=== PATIENT | male | born 1980 | race Caucasian/White ===

== ENCOUNTER 2018-10-03 05:01 | Observation (INO) | payer OTHER ==
--- NOTE | 2018-10-03 05:14 | ED ---
Substance Abuse/Use - HPI Summary HPI Summary: The pt is a 37 y/o male brought in by ambulance to [facility] c/o Dextromethorphan overdose worsened today. 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 He usually takes 300-400 mg of Dextromethorphan daily to feel high and increased intake to increase the effect. He notes palpitations, dry mouth, diaphoresis, tremors and polydipsia but denies SI. 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 Overdose Characteristics: Oral Alleviating Factor(s): Nothing Associated Signs And Symptoms: Palpitations - Allergies/Home Medications Allergies/Adverse Reactions: Allergies Allergy/AdvReac Type Severity Reaction Status Date / Time No Known Allergies Allergy Verified 10/03/18 05:09 PMH/Surg Hx/FS Hx/Imm Hx Previously Healthy: No Endocrine/Hematology History: Reports: Hx Thyroid Disease - Hypothyroidism Denies: Hx Diabetes Cardiovascular History: Reports: Hx Hypertension Respiratory History: Denies: Hx Asthma Sensory History: Denies: Hx Deafness Psychiatric History: Reports: Hx Anxiety, Hx Depression, Hx Substance Abuse - Cancer History Cancer Type, Location and Year: None reoported - Surgical History Surgery Procedure, Year, and Place: None reported Infectious Disease History: No Infectious Disease History: Denies: Traveled Outside the [place] in Last 30 Days - Family History Known Family History: Negative: Cardiac Disease, Hypertension, Diabetes - Social History Occupation: Unemployed Alcohol Use: None Hx Substance Use: Yes Substance Use Comment - Amount & Last Used: DMX cough syrup daily Hx Tobacco Use: No Smoking Status (MU): Never Smoked Tobacco Review of Systems Constitutional: Other - Positive: Polydipsia Positive: Skin Diaphoresis ENT: Other - Positive: Dry mouth Positive: Palpitations Positive: no symptoms reported Neurological: Other - Tremors Positive: Other - Negative: SI All Other Systems Reviewed And Are Negative: Yes Physical Exam - Summary Physical Exam Summary: Appearance: Well-appearing, Obese, lying in bed comfortable Skin: Warm, dry, no obvious rash Eyes: Pupils 3mm reactive, sclera anicteric, no conjunctival pallor ENT: mucous membranes moist, dry mouth Neck: deferred Respiratory: No signs of respiratory distress Cardiovascular: Tachycardic. Appears well perfused, pulses are nml Abdomen: deferred Musculoskeletal: Moving all 4 extremities without obvious discomfort Neurological: Reflexes are normal,No clonus, Awake and alert, mentation is normal, speech is fluent and appropriate Psychiatric: affect is normal, does not appear anxious or depressed Triage Information Reviewed: Yes Vital Signs On Initial Exam: Initial Vitals Temp Pulse Resp BP Pulse Ox 100.1 F 130 20 153/105 93 10/03/18 05:05 10/03/18 05:05 10/03/18 05:05 10/03/18 05:05 10/03/18 05:05 Vital Signs Reviewed: Yes Diagnostics - Vital Signs Vital Signs Temp Pulse Resp BP Pulse Ox 10/03/18 05:05 100.1 F 130 20 153/105 93 - Laboratory Result Diagrams: 10/03/18 05:41 10/03/18 05:41 Lab Statement: Any lab studies that have been ordered have been reviewed, and results considered in the medical decision making process. - EKG 05:04 Cardiac Rate: Tachycardia - 130 bpm EKG Rhythm: Sinus Tachycardia Summary of EKG Findings: QT interval is 360; QT corrected is 538 06:33 Cardiac Rate: Tachycardia - 126 bpm EKG Rhythm: Sinus Tachycardia Summary of EKG Findings: QT= 0.34 QT corrected =522 Re-Evaluation - Re-Evaluation First Eval Re-Evaluation Time: 05:59 Change: Improved - The patient feels better. The heart rate has decreased to 124 bpm. Course/Dx - Course Course Of Treatment: A 37 year-old M presents to the ED with a CC of Dextromethorphan overdose. 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 He usually takes 300-400 mg of Dextromethorphan daily to feel high and increased intake to increase the effect. He notes palpitations, dry mouth, diaphoresis, tremors and polydipsia but denies SI. A physical exam revealed obesity, tachycardia, a dry mouth, pupils 3 that are 3mm reactive, and normal reflexes without clonus. An EKG reveals tachycardia, a QT interval of 360 and a corrected QT of 538. In the ED course, pt was given charcoal 50 mg PO, N.s 0.9 % IV, Lorazepam 2mg IV and Magnesium sulfate 2 mg in 50ml IVPB which improved the symptoms. Labs indicate elevated lactic acid, creatinine and ALT. A repeat EKG is stable. I discussed the care of the pt with Dr. Kayla MD who agreed to talk to the next provider at the change of shift about admitting the pt. Patient will be admitted with a final Dx of Dextromethorphan overdose. Pt is agreeable with this plan. Allergies noted. - Diagnoses Provider Diagnoses: Dextromethorphan overdose - Physician Notifications Discussed Care Of Patient With: Alfredo Garza - Hospitalist Time Discussed With Above Provider: 06:41 Instructed by Provider To: Other - Dr. Garza agreed to inform the next provider about an admission at the change of shift. Discharge - Sign-Out/Discharge Documenting (check all that apply): Patient Departure - Discharge Plan Condition: Stable Disposition: ADMITTED TO [facility] Referrals: [facility] [Outside] - Attestation Statements Document Initiated by Scribe: Yes Documenting Scribe: Erin Cool Provider For Whom Scribe is Documenting (Include Credential): Dr. Monroe Rasheed MD Scribe Attestation: Erin Condon, scribed for Dr. Monroe Rasheed MD on 10/03/18 at 0656.
[2018-10-03] MEDS ORDERED: Magnesium Sulfate 2 GM IV* 2 GM/50 ML BAG IVPB ONE (05:16)
[2018-10-03] MEDS ORDERED: NS 0.9% 1000 ML* 3,000 ML IV ONE (05:16)
[2018-10-03] MEDS ORDERED: LORazepam INJ* 2 MG/ML 1 ML VIAL IV PUSH ONE (05:21)
[2018-10-03] MEDS ORDERED: Charcoal 50 GM/Sorbitol* 50 GM/240 ML BTL PO ONE (05:21)
[2018-10-03 05:51] LABS: ABS Basophils 0.1 10^3/ul (0-0.2); ABS Eosinophils 0.2 10^3/ul (0-0.6); ABS Lymphocytes 2.8 10^3/ul (1.0-4.8); ABS Monocytes 0.8 10^3/ul (0-0.8); ABS Neutrophils 4.3 10^3/ul (1.5-7.7); ABS Nucleated RBC 0 10^3/ul; Eosinophil % 2.4 % (0-6); Hematocrit 43 % (42-52); Hemoglobin 14.7 g/dl (14.0-18.0); Lymphocyte % 34.1 % (25-47); Mean Corpuscular HGB Conc 34 g/dl (31-36); Mean Corpuscular Hemoglobin 31 pg (27-31); Mean Corpuscular Volume 90 fL (80-94); Mean Platelet Volume 7.8 fL (7.4-10.4); Nucleated Red Blood Cells % 0; Platelet Count 277 10^3/ul (150-450); Red Blood Count 4.76 10^6/ul (4.00-5.40); Red Cell Distribution Width 14 % (10.5-15); White Blood Count 8.1 10^3/ul (3.5-10.8)
[2018-10-03 06:08] LABS: EGFR Non-African American 65.4 (>60)
[2018-10-03] MEDS ORDERED: Potassium Chlor TAB* 20 MEQ TAB.ER PO ONE (07:05)
[2018-10-03] MEDS ORDERED: Acetaminophen TAB* 325 MG PO PRN (07:52)
[2018-10-03 08:00] LABS: Urine Appearance Clear; Urine Blood Negative (Negative); Urine Color Yellow; Urine Ketones Negative (Negative); Urine Protein Negative (Negative); Urine Red Blood Cell Absent (Absent); Urine Specific Gravity 1.023 (1.010-1.030); Urine Urobilinogen Negative (Negative); Urine White Blood Cell Absent (Absent)
[2018-10-03] MEDS ORDERED: NS 0.9% 1000 ML* 1,000 ML IV SCH (08:00)
--- NOTE | 2018-10-03 11:58 | HP ---
TWO ADDENDUMS NOW INCLUDED ON THIS REPORT CC: Alyssia Humphreys NP * HISTORY AND PHYSICAL: DATE OF ADMISSION: 10/03/18 PRIMARY CARE PROVIDER: Alyssia Humphreys NP. CHIEF COMPLAINT: Dextromethorphan overdose. "I felt like I was dying." HISTORY OF PRESENT ILLNESS: Jameel Ortez is a 37-year-old male with history of obesity, hypothyroidism, hypertension and "social anxiety" who presented to the hospital after he took 2 bottles of dextromethorphan "to get high." He has been doing that almost every evening for several months now. Usually he takes half of the quantity that he took last night, but yesterday he wanted to get "more high" and he took double the amount. Within a few hours he had a sensation that he is going to . He denied any chest pain, palpitations or shortness of breath. He had no pain. He said it was just "feeling." Due to that, he called 911 and he presented to the ED tachycardiac, diaphoretic with ataxia. By the time of his admission, he was still tachycardiac and slightly diaphoretic but his ataxia resolved. Apparently the patient was also transiently confused in the emergency room but that resolved also. He states that due to his anxiety, he had been using more dextromethorphan. He also uses NyQuil on an as needed basis, double the dose at night, to try to sleep. The patient is going to be placed on overnight observation with a diagnosis of dextromethorphan overdose. MEDICATIONS: Include: 1. Lisinopril 10 mg daily. 2. Levothyroxine 75 mcg daily. 3. Paxil 40 mg daily. ALLERGIES: No known drug allergies. FAMILY HISTORY: Positive for mother who of brain cancer at the age of 66. SOCIAL HISTORY: The patient lives alone. His surrogate is his father Eddie Ortez, his phone number is [phone]. The patient denies any tobacco, alcohol or drug use. He is currently on SSI. REVIEW OF SYSTEMS: Please see history of present illness. All the remaining 12 systems were reviewed with the patient and were otherwise negative. PHYSICAL EXAMINATION GENERAL: The patient is a very pleasant, 37-year-old obese male with a BMI of 41. The patient is in no acute distress. Alert and awake and oriented x3. VITAL SIGNS: Blood pressure 118/87, heart rate of 127 and regular. Respiratory rate 22, oxygen saturation 94% on room air. Temperature of 100.1. HEENT: Head: Atraumatic, normocephalic. Eyes: Pupils equal, round, and reactive to light and accommodation. Oropharynx clear. Mucosa moist. NECK: Supple. No JVD. No bruits bilaterally. RESPIRATORY: Clear to auscultation bilaterally. CARDIOVASCULAR: Regular rate and rhythm. Tachycardia. No murmur. ABDOMEN: Obese, soft, nontender, bowel sounds are present in all 4 quadrants. EXTREMITIES: There is no edema, pulses are +2 bilaterally, no clubbing or cyanosis. NEUROLOGIC: On neuro evaluation, speech clear. Cranial nerves II through XII grossly intact. Motor strength is 5/5 bilaterally. PSYCHIATRIC EVALUATION: Oriented x3, pleasant and cooperative with evaluation with no evidence of anxiety or depression. LABORATORY DATA: Salsalate, acetaminophen, and alcohol level in the serum were undetectable. Urinalysis was grossly unremarkable. Sodium 141, potassium 3.8, chloride 107, CO2 of 26, BUN of 15, creatinine 1.25. Liver function tests showed AST of 41, ALT of 67, bilirubin within normal limits at 0.3 and alkaline phosphatase of 97. TSH and CPK are pending at the time of dictation. Lactic acid was slightly elevated at 3.2. White blood cell count of 8.1, hemoglobin of 14.7, hematocrit of 43 and platelets of 277. The patient's most recent EKG showed sinus tachycardia with a heart rate of 126 beats per minute with QTc of 442 msec. ASSESSMENT AND PLAN: 1. Dextromethorphan overdose. The patient is going to be placed on overnight observation due to tachycardia, diaphoresis. He is also slightly hyperthermic. We will rule out the rhabdomyolysis by checking CPKs. He is going to be observed in telemetry monitored bed. I will ask Psychiatry to see the patient in consult since the patient had been overusing dextromethorphan for several months now due to his anxiety. For the time being, I will hold his Paxil. 2. In regards to patient's hypertension. The patient's creatinine is slightly elevated likely due to dehydration. I will hold patient's, lisinopril and continue monitoring for the time being. 3. For his hypothyroidism: His TSH is going to be checked. I will continue his Synthroid at 75 mcg daily. 4. In regards to patient's substance abuse. He denies suicidal ideation or trying to kill himself with the dextromethorphan last night. He stated that it eases off his anxiety and he just wanted to get "high." I will ask Psychiatry to address this patient's anxiety issues. TIME SPENT: Approximately 55 minutes was spent on admission of this patient, more than half that time was spent [id number] with the patient doing the interview and physical exam. ADDENDUM NO.1: Please note that the patient has a history of psoriasis. Please also note that the correction to my physical exam dictated previously: Note that this patient does have diffuse psoriasis, black plaques, and erythema , mostly concentrated on bilateral upper extremities and his forehead. ADDENDUM/CORRECTION NO.2: MEDICATION LIST: The corrected medication list that was confirmed with patient' s pharmacy. Please note that previously reported medications as above were reported by patient himself and the corrected ones now include: 1. Levothyroxine 300 mcg daily. 2. Lisinopril 20 mg daily. 3. Bupropion XL 150 mg daily. 4. Paroxetine 40 mg daily. [id number]/CPS #: [id number]/CPS #: [id number]/CPS #: [id number] [facility]
--- NOTE | 2018-10-03 12:15 | HP ---
HISTORY AND PHYSICAL: ADDENDUM: Please note that the patient has a history of psoriasis. Please also note that the correction to my physical exam dictated previously: Note that this patient does have diffuse psoriasis, black plaques, and erythema , mostly concentrated on bilateral upper extremities and his forehead. [id number]/[facility] #: [id number] MTDD
[2018-10-04] MEDS ORDERED: Levothyroxine TAB* 75 MCG TAB PO SCH (06:00)
[2018-10-04 07:09] LABS: EGFR Non-African American 67.2 (>60)
[2018-10-04 07:36] LABS: ABS Basophils 0.1 10^3/ul (0-0.2); ABS Eosinophils 0.3 10^3/ul (0-0.6); ABS Lymphocytes 3.5 10^3/ul (1.0-4.8); ABS Monocytes 0.7 10^3/ul (0-0.8); ABS Neutrophils 4.2 10^3/ul (1.5-7.7); ABS Nucleated RBC 0 10^3/ul; Hematocrit 42 % (42-52); Hemoglobin 13.9 g/dl (14.0-18.0); Lymphocyte % 39.7 %; Mean Corpuscular HGB Conc 33 g/dl (31-36); Mean Corpuscular Hemoglobin 31 pg (27-31); Mean Corpuscular Volume 92 fL (80-94); Nucleated Red Blood Cells % 0.1; Platelet Count 246 10^3/ul (150-450); Red Blood Count 4.54 10^6/ul (4.00-5.40); Red Cell Distribution Width 14 % (10.5-15); White Blood Count 8.8 10^3/ul (3.5-10.8)
[2018-10-04] MEDS ORDERED: BuPROPion XL* 150 MG TAB.XL PO SCH (09:00)
[2018-10-04] MEDS ORDERED: Lisinopril TAB* 10 MG PO SCH (09:00)
[2018-10-04] MEDS ORDERED: Levothyroxine TAB* 150 MCG TAB PO SCH (09:00)
[2018-10-04] MEDS ORDERED: PARoxetine HCL TAB* 40 MG PO SCH (09:00)
[2018-10-04 13:16] VITALS: BP 138/89
--- NOTE | 2018-10-04 14:36 | CONSULT ---
Consult Consult: Attending Physician: Melo Breen MD Consulting Physician: Lexy Walker MD Reason for Consult: Dextromethorphan overdose Chief complaint: I will not do that thing again Source of information: Patient, father, chart review Identifying Data: Patient is 37 y/o male, living by self in [place], [place], support system includes his family. History of presenting illness: Patient with history of Social Anxiety and Depressive Disorder. Patient has been compliant with his medications but irregular with timings. Patient reports not taking Bupropion for about a week as it was increasing anxiety and increasing craving for food. Patient follows up with his primary care for medications management but feels the need to be seen more frequently. Patient continues to struggle with his social anxiety, staying home mostly, not able to get himself out in the social setting including grocery store etc, not going to gym, unable to work due to his anxiety. 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 Patient reported that he was using Nyquil at bedtime for sleep on as need basis until he used DXM cough suppressant that gave him feelings of high and more spiritual. Patient later was using DXM cough suppressant 500 mg 2-3 times a week to get high. Patient reports that he continued to get high but feelings plateaued after couple of months and was not having that spiritual feeling. Patient searched somewhat similar product at [employer] (Robocough) and learned from forums that he can have out of body and spiritual feelings. Patient bought it and first day used two bottles with some hours of gap in between (450 mg of Dextromethorphan). Next day patient used 2 bottles at one time and that initiated intense feeling of a panic attack and that he was going to and got worried. Patient called 911 and was brought to ED for evaluation and stayed overnight for observation. Patient reports feeling of depression with use of alcohol that he tried using to help with social anxiety, but no suicidal or homicidal thoughts. Patient has been planning to get into his routine to help him rather than abusing DXM/Robocough/ Alcohol. Patient reported no craving /urges to use it and would stop it on his own. Patient agreed to go back to physical exercise as well that has helped him in the past for social anxiety and feels hopeful. Patient reports no manic or psychotic symptoms. Patient reported no illicit substance abuse. Past Psychiatric History: Patient reports no inpatient psychiatric hospitalization. Patient reports his struggle with social anxiety started in his middle school and could not get through high school due to that. Patient missed days at school and dropped out in 11th grade. Patients reports getting therapy for that during that time. Patient was not treated with medication until 2007 when he was started on Prozac which caused weight gain. Patient switched to Paxil and was increased to 40mg a day and had stable anxiety to help with daily routines, works from home. Patient reported symptoms of grief after his mother passing away due to brain cancer at age 66 in August of 2015. Patient reported history of passive suicidal thoughts after her , but no intent or attempt. Patient reports that he was able to overcome her loss through grieving process. Currently feels doing better in that. Patient reported no major depression, no euphoric mood and increased goal directed activity, psychosis of delusion/hallucination/bizarre behavior. Family History: Patient has reported social anxiety in his mother. No other psychiatric illness or substance/alcohol abuse in family reported. No suicide in family reported. Medical History: Hypothyroidism, Obesity, HTN Mental Status Examination: Patient is a 37 y/o male, dressed in casual clothing, fair hygiene, lying on his bed, making fair eye contact. Attitude towards interviewer was cooperative. Patient walks without difficulty. Patient did not display any abnormal motor activity during the interview. Patient was oriented to situation, self, place and time. Speech was soft with normal in rate and rhythm. Patient mood was better and affect was dysthymic but reactive appropriately with smiles. Patient memory was fair but had trouble remembering details from his past memories during child antonio. Thought process was coherent. No delusions elicited and no hallucinations reported. Patient did not appear to be internally preoccupied. Patient denied any SI/HI. Patient had fair insight in his treatment and medications. Patient Judgment was fair at time of evaluation. Patient impulse control was good during evaluation. Diagnosis: Social Anxiety Disorder Dextromethorphan Abuse Assessment: Patient is 37 y/o with Social Anxiety Disorder and abusing Dextromethorphan/alcohol leading to feelings of depression. Patient was admitted after adverse reaction due to increase intake of Dextromethorphan to get high and out of body experience. Patient reported no suicidal/Homicidal thoughts, no intent or attempt. Patient has been complying with his medications but agreed to have increased frequency of treatment and get mental Health treatment at [facility] with therapy and medication management. Recommendations: Patient will abstain from medication abuse including DXM/Nyquil and cough suppressant. Patient to use Paxil 40 mg PO routinely around bed time as it will assist him with sleep and reduce fatigue during the day. Patient Wellbutrin to be discontinued due to side effects and not tolerating it well at this time. Patient to use OTC Melatonin to assist with sleep disturbance. Patient to continue with other medications as per medical team. Patient will incorporate physical exercise in his routine as tolerated as that was beneficial in the past to help with his anxiety. Patient was educated to follow up with [facility] for his outpatient mental health treatment. Patient currently no interested in medication/substance/alcohol abuse treatment and feels that he can abstain away from it on his own. But educated to obtain help if continued to have difficulty with it. Melo Breen MD Attending Psychiatrist
--- NOTE | 2018-10-04 18:28 | HP ---
HISTORY AND PHYSICAL: ADDENDUM/CORRECTION: MEDICATION LIST: The corrected medication list that was confirmed with patient' s pharmacy. Please note that previously reported medications as above were reported by patient himself and the corrected ones now include, 1. Levothyroxine 300 mcg daily. 2. Lisinopril 20 mg daily. 3. Bupropion XL 150 mg daily. 4. Paroxetine 40 mg daily. [id number]/[facility] #: [id number] MTDD
--- NOTE | 2018-10-05 10:14 | DS ---
CC: Dr. Breen; Alyssia Humphreys NP * DISCHARGE SUMMARY: DATE OF ADMISSION: 10/03/18 DATE OF DISCHARGE: 10/04/18 PRIMARY CARE PROVIDER: Alyssia Humphreys NP from [place]. DISCHARGE DIAGNOSIS: Dextromethorphan overdose. MEDICATIONS AT DISCHARGE: Include: 1. Paxil 40 mg daily, preferably to take at night. 2. Lisinopril 20 mg daily. 3. Levothyroxine 300 mcg daily. LABORATORY DATA AND STUDIES PERFORMED DURING THE HOSPITAL STAY: Include: On : White blood cell count of 8.8, hemoglobin of 13.9, hematocrit of 42, and platelets of 246,000. Sodium was 138, potassium 3.8, chloride 105, carbon dioxide 24, BUN 15, and creatinine of 1.22. Liver function tests with mild elevation of ALT at 53, otherwise unremarkable. The patient's TSH was 12.6 at admission. Lactic acid of 2.3 on the day of discharge. HOSPITAL COURSE: Jameel Ortez is a 37-year-old male with history of obesity and psoriasis as well as hypertension and hypothyroidism who presented to the hospital after a sensation that "he is going to " after dextromethorphan overdose. The patient stated that he had been using dextromethorphan on and off on a daily basis to "get high." He took too much of the dose and he felt very unwell. He came into the hospital for evaluation. Poison Control recommended for the patient to be observed for at least 6 hours on telemetry monitored bed. The patient was placed on overnight observation. He stated that he uses dextromethorphan to fight his anxiety. Due to that, I asked Dr. Breen from Psychiatry to see the patient in consultation who recommended discontinuation of the patient's Wellbutrin XL and continuation of Paxil only. The patient's TSH was abnormal at admission. The patient stated that he had been having his Synthroid adjusted by Alyssia Humphreys and I asked the patient to follow up with Alyssia Humphreys for further adjustment of his Synthroid. He also stated that he could have missed a couple of doses recently. By the time of discharge, the patient was still mildly tachycardic with the heart rate in the 90s. PHYSICAL EXAMINATION: The remaining physical exam is as follows. Blood pressure of 138/89, heart rate of 99 and regular, respiratory rate 17, oxygen saturation 98% on room air, and temperature 98.1. General Appearance: This is a very pleasant 37-year-old obese male who is in no acute distress. Alert, awake, and oriented x3. HEENT: Head atraumatic, normocephalic. Eyes: Pupils are equal, reactive to light and accommodation. Oropharynx clear. Mucosa moist. Neck: Supple. No JVD. No bruits bilaterally. Cardiovascular: Regular rate and rhythm. No murmur. Respiratory: Clear to auscultation bilaterally. Abdomen: Soft and nontender. Bowel sounds present in all 4 quadrants. Extremities: There is no edema. Pulses are +2 bilaterally. No clubbing or cyanosis. Skin: On evaluation of the skin, the patient has psoriasis plaques noted on forehead and bilateral shoulders mostly. Psychiatric Evaluation: Pleasant, cooperative with evaluation. Oriented x3 with no evidence of anxiety or depression. Please note that this is a short summary of the patient's hospitalization, please refer to further medical records for details. [id number]/[facility] #: [id number] MTDD
== END 2018-10-04 14:25 | disposition home or self-care (01) ==
LOC: ED 05:01 → MED 07:52
PROVIDERS: ADMIT Internal Medicine; ATTEND Internal Medicine
DX: T48.3X1A Poisoning by antitussives, accidental (unintentional), initial encounter (principal); Y92.9 Unspecified place or not applicable; E66.9 Obesity, unspecified; E03.9 Hypothyroidism, unspecified; I10 Essential (primary) hypertension; R00.2 Palpitations
CPT/HCPCS: 36415; 80048; 80053; 80076; 80307; 80320; 80329; 81003; 82550; 83605; 83735; 84443; 85025; 93005; 96361; 96365; 96375; 99284; A9270-GY; G0378; G0480; J2060; J3475

== ENCOUNTER 2018-10-04 18:48 | Emergency (ER) | payer OTHER ==
--- NOTE | 2018-10-04 20:14 | ED ---
Psychiatric Complaint - HPI Summary HPI Summary: A 37 y/o male accompanied by family presents to the ED c/o anxiety s/p overdose on Dextromethorphan yesterday. Currently, the patient is calmer now as he stated , but when he is at home he is anxious and can't get comfortable. As per triage , "Feeling anxious, states he thinks he needs someone to talk to. Denies SI/HI" . According to the patient, his experience yesterday of overdosing on Dextromethorphan (900 mg of Robocough) was "the most terrifying experiencing ever" and he "wouldn't want to wish it upon anybody". He stated that he cannot get the thoughts of the experience out of his mind and experiencing constant thoughts of it. He stated that he is consistently worried that his heart is racing. He noted that he is always worried about this heart. He noted that he has not taken any more of the Robocough and will not take it ever again. He does not want to experience it again. - History Of Current Complaint Chief Complaint: EDPsychosocial Time Seen by Provider: 10/04/18 20:07 Hx Obtained From: Patient Onset/Duration: Sudden Onset, Lasting Days, Still Present Timing: Constant Character: Anxious Aggravating Factor(s): Recent Stress - RECENT OVERDOSE Alleviating Factor(s): Nothing Associated Signs And Symptoms: Positive: Negative Has Suicidal: Denies: Thoughts Has Homicidal: Denies: Thoughts - Allergies/Home Medications Allergies/Adverse Reactions: Allergies Allergy/AdvReac Type Severity Reaction Status Date / Time No Known Allergies Allergy Verified 10/03/18 05:09 PMH/Surg Hx/FS Hx/Imm Hx Endocrine/Hematology History: Reports: Hx Thyroid Disease - Hypothyroidism Denies: Hx Diabetes Cardiovascular History: Reports: Hx Hypertension Respiratory History: Denies: Hx Asthma Sensory History: Reports: Hx Contacts or Glasses Denies: Hx Deafness, Hx Hearing Aid Opthamlomology History: Reports: Hx Contacts or Glasses Psychiatric History: Reports: Hx Anxiety, Hx Depression Denies: Hx Attention Deficit Hyperactivity Disorder, Hx Eating Disorder, Hx Panic Disorder - 1 episode of panic while in school, Hx Post Traumatic Stress Disorder, Hx Inpatient Treatment, Hx Community Mental Health Tx, Hx Schizophrenia, Hx Bipolar Disorder, Hx Suicide Attempt, Hx Substance Abuse, Other Psychiatric Issues/Disorders - Cancer History Cancer Type, Location and Year: None reoported - Surgical History Surgery Procedure, Year, and Place: None reported Infectious Disease History: No Infectious Disease History: Denies: Traveled Outside the [place] in Last 30 Days - Family History Known Family History: Negative: Cardiac Disease, Hypertension, Diabetes - Social History Alcohol Use: None Hx Substance Use: Yes Substance Use Type: Reports: Other Substance Use Comment - Amount & Last Used: DMX cough syrup daily Hx Tobacco Use: No Smoking Status (MU): Never Smoked Tobacco Review of Systems Negative: Fever Positive: Anxious All Other Systems Reviewed And Are Negative: Yes Physical Exam - Summary Physical Exam Summary: Appearance: Well-appearing, Well-nourished, lying in bed comfortably Skin: Warm, dry, no obvious rash Eyes: sclera anicteric, no conjunctival pallor ENT: mucous membranes moist, pharynx appears normal Neck: Supple, nontender Respiratory: Clear to auscultation, no signs of respiratory distress Cardiovascular: Normal S1, S2. No murmurs. Normal distal pulses in tibial and radial bilaterally. Abdomen: Soft, nontender, normal active bowel sounds present Musculoskeletal: Normal, Strength/ROM Intact Neurological: A&Ox3, awake and alert, mentation is normal, speech is fluent and appropriate Psychiatric: affect is normal, does not appear anxious or depressed Triage Information Reviewed: Yes Vital Signs On Initial Exam: Initial Vitals Temp Pulse Resp BP Pulse Ox 96.6 F 123 20 154/115 97 10/04/18 18:51 10/04/18 18:51 10/04/18 18:51 10/04/18 18:51 10/04/18 18:51 Vital Signs Reviewed: Yes Diagnostics - Vital Signs Vital Signs Temp Pulse Resp BP Pulse Ox 10/04/18 18:51 96.6 F 123 20 154/115 97 - Laboratory Lab Statement: Any lab studies that have been ordered have been reviewed, and results considered in the medical decision making process. Course/Dx - Course Course Of Treatment: A 37 y/o male accompanied by family presents to the ED c/o anxiety s/p overdose on Dextromethorphan yesterday. Currently, the patient is calmer now as he stated, but when he is at home he is anxious and can't get comfortable. According to the patient, his experience yesterday of overdosing on Dextromethorphan (900 mg of Robocough) was "the most terrifying experiencing ever" and he "wouldn't want to wish it upon anybody". He stated that he cannot get the thoughts of the experience out of his mind and experiencing constant thoughts of it. He stated that he is consistently worried that his heart is racing. He noted that he is always worried about this heart. He noted that he has not taken any more of the Robocough and will not take it ever again. He does not want to experience it again. Physical exam was unremarkable.No laboratory scans were done. No blood work was done. In the ED course, the patient recieved Atarax. Patient will be discharged with a diaggnosis of anxiety. Patient will be sent home with prescriptions for Vistril. Patient will is to follow up with PCP in 2-3 days. Patient is agreeable with this plan. - Differential Dx/Clinical Impression Provider Diagnosis: Anxiety Discharge - Sign-Out/Discharge Documenting (check all that apply): Patient Departure - DISCHARGE - Discharge Plan Condition: Stable Disposition: HOME Prescriptions: hydrOXYzine pamoate [Vistaril] 50 mg PO TID PRN #15 capsule PRN Reason: Anxiety Patient Education Materials: Anxiety (ED) Referrals: Alyssia Humphreys NP [Primary Care Provider] - 3 Days - Billing Disposition and Condition Condition: STABLE Disposition: Home - Attestation Statements Document Initiated by Wilberto: Yes Documenting Scribe: Corey Montalvo Provider For Whom Wilberto is Documenting (Include Credential): Monroe Rasheed MD Scribe Attestation: Corey Condon, scribed for Monroe Rasheed MD on 10/05/18 at 0212. Scribe Documentation Reviewed: Yes Provider Attestation: The documentation as recorded by the Corey sorensen accurately reflects the service I personally performed and the decisions made by me, Monroe Rasheed MD Status of [place]rt[place] Document: Viewed
[2018-10-04] MEDS ORDERED: hydrOXYzine HCL TAB* 50 MG PO ONE (20:16)
[2018-10-04 20:33] VITALS: BP 0/0
== END 2018-10-04 20:31 | disposition home or self-care (01) ==
LOC: ED 18:48
DX: F41.9 Anxiety disorder, unspecified (principal)
CPT/HCPCS: 99281; A9270-GY

== ENCOUNTER 2018-10-05 22:39 | Emergency (ER) | payer OTHER ==
--- NOTE | 2018-10-05 23:19 | ED ---
Substance Abuse/Use - HPI Summary HPI Summary: This patient is a 37 year old M brought in by ambulance with a chief complaint of palpitations s/p taking 15 pills of dextromethorphan because I wanted to get high. Pt reports the palpitations are resolved in the ED. Patient reports cold sweats, palpitations, and emptiness in his stomach. Patient denies SOB, CP , or difficulty breathing. Pt thinks that he was having withdrawal symptoms from regularly taking Dextromethorphan. - History Of Current Complaint Chief Complaint: EDChestPainROMI Stated Complaint: PALPITATIONS Time Seen by Provider: 10/05/18 22:48 Hx Obtained From: Patient Onset/Duration of Drug/ETOH Abuse: Hours Ingestion History: Type/Name Of Drug - dextromethorphan, Amount Ingested - 15 pills Overdose Characteristics: Oral Severity Initially: Mild Severity Currently: Mild Associated Signs And Symptoms: Palpitations - Risk Factor(s) Completed Suicide Risk Factors: Male, White [place] - Allergies/Home Medications Allergies/Adverse Reactions: Allergies Allergy/AdvReac Type Severity Reaction Status Date / Time No Known Allergies Allergy Verified 10/03/18 05:09 PMH/Surg Hx/FS Hx/Imm Hx Endocrine/Hematology History: Reports: Hx Thyroid Disease - Hypothyroidism Denies: Hx Diabetes Cardiovascular History: Reports: Hx Hypertension Respiratory History: Denies: Hx Asthma Sensory History: Reports: Hx Contacts or Glasses Denies: Hx Deafness, Hx Hearing Aid Opthamlomology History: Reports: Hx Contacts or Glasses Psychiatric History: Reports: Hx Anxiety, Hx Depression Denies: Hx Attention Deficit Hyperactivity Disorder, Hx Eating Disorder, Hx Panic Disorder - 1 episode of panic while in school, Hx Post Traumatic Stress Disorder, Hx Inpatient Treatment, Hx Community Mental Health Tx, Hx Schizophrenia, Hx Bipolar Disorder, Hx Suicide Attempt, Hx Substance Abuse, Other Psychiatric Issues/Disorders - Cancer History Cancer Type, Location and Year: None reoported - Surgical History Surgery Procedure, Year, and Place: None reported Infectious Disease History: No Infectious Disease History: Denies: Traveled Outside the [place] in Last 30 Days - Family History Known Family History: Negative: Cardiac Disease, Hypertension, Diabetes - Social History Alcohol Use: None Hx Substance Use: Yes Substance Use Type: Reports: Other - dextropethorphan Substance Use Comment - Amount & Last Used: DMX cough syrup daily Hx Tobacco Use: No Smoking Status (MU): Never Smoked Tobacco Review of Systems Positive: Other - cold sweats Positive: Palpitations Gastrointestinal: Other - "emptiness in stomach" All Other Systems Reviewed And Are Negative: Yes Physical Exam - Summary Physical Exam Summary: Appearance: Well-appearing, Well-nourished, lying in bed comfortable Skin: Warm, dry, no obvious rash Eyes: sclera anicteric, no conjunctival pallor ENT: mucous membranes moist Neck: deferred Respiratory: No signs of respiratory distress Cardiovascular: Appears well perfused, mild tachycardia Abdomen: deferred Musculoskeletal: Moving all 4 extremities without obvious discomfort Neurological: Awake and alert, mentation is normal, speech is fluent and appropriate Psychiatric: affect is normal, does not appear anxious or depressed Triage Information Reviewed: Yes Vital Signs On Initial Exam: Initial Vitals Temp Pulse Resp BP Pulse Ox 97.8 F 113 16 139/82 95 10/05/18 22:47 10/05/18 22:47 10/05/18 22:47 10/05/18 22:47 10/05/18 22:47 Vital Signs Reviewed: Yes Diagnostics - Vital Signs Vital Signs Temp Pulse Resp BP Pulse Ox 10/05/18 22:47 97.8 F 113 16 139/82 95 - Laboratory Lab Statement: Any lab studies that have been ordered have been reviewed, and results considered in the medical decision making process. Course/Dx - Course Course Of Treatment: This patient is a 37 year old M brought in by ambulance with a chief complaint of palpitations s/p taking 15 pills of dextromethorphan because I wanted to get high. Pt reports the palpitations are resolved in the ED. Patient reports cold sweats, palpitations, and emptiness in his stomach. Patient denies SOB, CP, or difficulty breathing. Pt thinks that he was having withdrawal symptoms from regularly taking Dextromethorphan. Patient will be discharged with follow up from Dr. Humphreys. The patient is agreeable with this plan. - Diagnoses Provider Diagnoses: Heart palpitations, Substance abuse Discharge - Sign-Out/Discharge Documenting (check all that apply): Patient Departure - discharge - Discharge Plan Condition: Good Disposition: HOME Patient Education Materials: Heart Palpitations (ED) Referrals: Alyssia Humphreys NP [Primary Care Provider] - 1 Day - Billing Disposition and Condition Condition: GOOD Disposition: Home - Attestation Statements Document Initiated by Scribe: Yes Documenting Scribe: Jorge Bazan Provider For Whom Scribe is Documenting (Include Credential): Monroe Rasheed MD Scribe Attestation: I, Jorge Bazan, scribed for Monroe Rasheed MD on 10/06/18 at 0349. Scribe Documentation Reviewed: Yes Provider Attestation: The documentation as recorded by the taliibeJorge accurately reflects the service I personally performed and the decisions made by me, Monroe Rasheed MD Status of Scribe Document: Viewed
[2018-10-05 23:56] VITALS: BP 128/72
== END 2018-10-05 23:55 | disposition home or self-care (01) ==
LOC: ED 22:39
DX: R00.2 Palpitations (principal); F19.10 Other psychoactive substance abuse, uncomplicated
CPT/HCPCS: 99281

== ENCOUNTER 2018-10-06 10:27 | Emergency (ER) | payer OTHER ==
--- NOTE | 2018-10-06 11:10 | ED ---
Psychiatric Complaint - HPI Summary HPI Summary: Pt is a 39 y/o male brought in by EMS who presents to the ED c/o anxiety. He states this is the fourth time hes been here in 3 days for the same symptoms of palpitations, diaphoresis, and impending doom. 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 3 days ago, he accidentally took a higher concentration of DMX and had an overdose. Pt reports he felt like he was dying. The next day he took some more DMX in order to avoid withdrawal. Today, he had a small amount of Nyquil, again in order to avoid withdrawal. Pt woke up with extreme anxiety and a sense of impending . He reports he has never had a panic attack before. 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 - History Of Current Complaint Time Seen by Provider: 10/06/18 10:33 Hx Obtained From: Patient Onset/Duration: Gradual Onset, Still Present Timing: Constant Character: Fearful, Anxious Aggravating Factor(s): Drug Use - DMX Associated Signs And Symptoms: Positive: Paranoid Behavior Related History: Positive For: Prior Psychiatric Issues Has Suicidal: Denies: Thoughts Has Homicidal: Denies: Thoughts - Allergies/Home Medications Allergies/Adverse Reactions: Allergies Allergy/AdvReac Type Severity Reaction Status Date / Time No Known Allergies Allergy Verified 10/03/18 05:09 Home Medications: Home Medications Vicks Nyquil Cold & Flu Liquid 30 ml PO BEDTIME PRN 10/06/18 [History Confirmed 10/06/18] PMH/Surg Hx/FS Hx/Imm Hx Endocrine/Hematology History: Reports: Hx Thyroid Disease - Hypothyroidism Denies: Hx Diabetes Cardiovascular History: Reports: Hx Hypertension Respiratory History: Denies: Hx Asthma Sensory History: Reports: Hx Contacts or Glasses Denies: Hx Deafness, Hx Hearing Aid Opthamlomology History: Reports: Hx Contacts or Glasses Psychiatric History: Reports: Hx Anxiety, Hx Depression Denies: Hx Attention Deficit Hyperactivity Disorder, Hx Eating Disorder, Hx Panic Disorder - 1 episode of panic while in school, Hx Post Traumatic Stress Disorder, Hx Inpatient Treatment, Hx Community Mental Health Tx, Hx Schizophrenia, Hx Bipolar Disorder, Hx Suicide Attempt, Hx Substance Abuse, Other Psychiatric Issues/Disorders - Cancer History Cancer Type, Location and Year: None reoported - Surgical History Surgery Procedure, Year, and Place: None reported Infectious Disease History: No Infectious Disease History: Denies: Traveled Outside the [place] in Last 30 Days - Family History Known Family History: Negative: Cardiac Disease, Hypertension, Diabetes - Social History Alcohol Use: None Hx Substance Use: Yes Substance Use Type: Reports: Other Substance Use Comment - Amount & Last Used: DMX cough syrup daily Hx Tobacco Use: No Smoking Status (MU): Never Smoked Tobacco Review of Systems Positive: Skin Diaphoresis Positive: Palpitations Positive: Rash Positive: Anxious All Other Systems Reviewed And Are Negative: Yes Physical Exam - Summary Physical Exam Summary: Appearance: The patient is well-nourished in no acute distress and in no acute pain. Skin: The skin is warm and dry and skin color reflects adequate perfusion. Diffuse eczema. HEENT: The head is normocephalic and atraumatic. The pupils are equal and reactive. The conjunctivae are clear and without drainage. Nares are patent and without drainage. Mouth reveals moist mucous membranes and the throat is without erythema and exudate. The external ears are intact. The ear canals are patent and without drainage. The tympanic membranes are intact. Neck: The neck is supple with full range of motion and non-tender. There are no carotid bruits. There is no neck vein distension. Respiratory: Chest is non-tender. Lungs are clear to auscultation and breath sounds are symmetrical and equal. Cardiovascular: Heart is regular rate and rhythm. There is no murmur or rub auscultated. There is no peripheral edema and pulses are symmetrical and equal. Abdomen: The abdomen is soft and non-tender. There are normal bowel sounds heard in all four quadrants and there is no organomegaly palpated. Musculoskeletal: There is no back tenderness noted. Extremities are non-tender with full range of motion. There is good capillary refill. There is no peripheral edema or calf tenderness elicited. Neurological: Patient is alert and oriented to person, place and time. The patient has symmetrical motor strength in all four extremities. Cranial nerves are grossly intact. Deep tendon reflexes are symmetrical and equal in all four extremities. Psychiatric: The patient has an appropriate affect and does not exhibit any anxiety or depression. Triage Information Reviewed: Yes Vital Signs On Initial Exam: Initial Vitals Temp Pulse Resp BP Pulse Ox 99.7 F 108 18 137/107 94 10/06/18 10:52 10/06/18 10:52 10/06/18 10:52 10/06/18 10:52 10/06/18 10:52 Vital Signs Reviewed: Yes Diagnostics - Vital Signs Vital Signs Temp Pulse Resp BP Pulse Ox 10/06/18 10:52 99.7 F 108 18 137/107 94 - Laboratory Result Diagrams: 10/06/18 11:28 10/06/18 11:28 Lab Statement: Any lab studies that have been ordered have been reviewed, and results considered in the medical decision making process. Re-Evaluation - Re-Evaluation First Eval Re-Evaluation Time: 14:00 Change: Unchanged Comment: Pt would like a MHE. Second Eval Re-Evaluation Time: 14:30 Change: Unchanged Comment: Pt is medically cleared for a MHE. Course/Dx - Course Course Of Treatment: Mr. Ortez has presented 3 times in the last few days with the same complaint of palpitations. The first presentation seem to be related to a possible overdose of dextromethorphan and he was admitted to the hospital, ruled out and evaluated by psych. On arrival today he was nontoxic in appearance with stable vital signs. There was no evidence of palpitations here and he was medically cleared. He requested a mental health eval stating that he thought this might all be anxiety. Dr. Jocelyn MD assessed the patient. He felt that the patient was stable for discharge and the patient has an appointment with his PCP tomorrow. - Differential Dx/Clinical Impression Provider Diagnosis: Substance induced mood disorder, Anxiety Discharge - Sign-Out/Discharge Documenting (check all that apply): Patient Departure - DC - Discharge Plan Condition: Stable Disposition: HOME Patient Education Materials: Mood Disorders (ED), Anxiety (ED) Referrals: Alyssia Humphreys NP [Primary Care Provider] - [facility] [Outside] [facility] [Outside] Additional Instructions: Keep your appointment tomorrow with Dr. Kofi MD. Return to ED for any new or worsening symptoms - Billing Disposition and Condition Condition: STABLE Disposition: Home - Attestation Statements Document Initiated by Scribe: Yes Documenting Scribe: Maryam Cool Provider For Whom Scribe is Documenting (Include Credential): Dr. Monroe Clemons MD Scribe Attestation: Maryam Condon , scribed for Dr. Monroe Clemons MD on at 2040. Scribe Documentation Reviewed: Yes Provider Attestation: The documentation as recorded by the scribe, Maryam Simon and Erin Cool accurately reflects the service I personally performed and the decisions made by me, Dr. Monroe Clemons MD Status of Scribe Document: Viewed
[2018-10-06 11:30] LABS: Urine Appearance Clear; Urine Blood Negative (Negative); Urine Color Yellow; Urine Ketones Negative (Negative); Urine Protein Negative (Negative); Urine Specific Gravity 1.032 (1.010-1.030); Urine Urobilinogen Negative (Negative)
[2018-10-06 11:34] LABS: ABS Basophils 0.1 10^3/ul (0-0.2); ABS Eosinophils 0.2 10^3/ul (0-0.6); ABS Lymphocytes 2.6 10^3/ul (1.0-4.8); ABS Monocytes 0.8 10^3/ul (0-0.8); ABS Neutrophils 5.6 10^3/ul (1.5-7.7); ABS Nucleated RBC 0 10^3/ul; Eosinophil % 1.7 %; Hematocrit 44 % (42-52); Hemoglobin 14.9 g/dl (14.0-18.0); Lymphocyte % 27.8 %; Mean Corpuscular HGB Conc 34 g/dl (31-36); Mean Corpuscular Hemoglobin 31 pg (27-31); Mean Corpuscular Volume 91 fL (80-94); Mean Platelet Volume 7.5 fL (7.4-10.4); Nucleated Red Blood Cells % 0.1; Platelet Count 293 10^3/ul (150-450); Red Blood Count 4.78 10^6/ul (4.00-5.40); Red Cell Distribution Width 14 % (10.5-15); White Blood Count 9.2 10^3/ul (3.5-10.8)
[2018-10-06 11:53] LABS: EGFR Non-African American 63.6 (>60)
[2018-10-06 18:50] VITALS: BP 132/98
== END 2018-10-06 18:49 | disposition home or self-care (01) ==
LOC: ED 10:27
DX: F19.94 Other psychoactive substance use, unspecified with psychoactive substance-induced mood disorder (principal); F41.9 Anxiety disorder, unspecified; E03.9 Hypothyroidism, unspecified; I10 Essential (primary) hypertension
CPT/HCPCS: 36415; 80053; 80307; 80320; 80329; 81003; 84443; 85025; 99284; G0480

== ENCOUNTER → 2018-10-07 00:42 | Emergency (ER) | payer OTHER ==
--- NOTE | 2018-10-07 01:47 | ED ---
Palpitations / Dysrhythmia - HPI Summary HPI Summary: A 37 y/o male presents to the ED c/o rapid heart rate. Additionally c/o depression and anxiety. As per triage, "Patient reports feelings of impending doom and rapid heart rate". According to the patient, he has SI, depression, and anxiety because of his rapid heart rate. He stated that he feels like he is dying and has been here multiple times and still feels the same. He denies any abdominal pain, SOB, and CP. Denies any ETOH, recreational drugs, or smoking. - History of Current Complaint Chief Complaint: EDDysrhythmPalp Time Seen by Provider: 10/07/18 01:04 Hx Obtained From: Patient Onset/Duration: Sudden Onset Timing: Constant Severity Currently: None Aggravating: Nothing Alleviating: Nothing Associated Signs & Symptoms: Negative - Allergy/Home Medications Allergies/Adverse Reactions: Allergies Allergy/AdvReac Type Severity Reaction Status Date / Time No Known Allergies Allergy Verified 10/03/18 05:09 PMH/Surg Hx/FS Hx/Imm Hx Endocrine/Hematology History: Reports: Hx Thyroid Disease - Hypothyroidism Denies: Hx Diabetes Cardiovascular History: Reports: Hx Hypertension Respiratory History: Denies: Hx Asthma Sensory History: Reports: Hx Contacts or Glasses Denies: Hx Deafness, Hx Hearing Aid Opthamlomology History: Reports: Hx Contacts or Glasses Psychiatric History: Reports: Hx Anxiety, Hx Depression Denies: Hx Attention Deficit Hyperactivity Disorder, Hx Eating Disorder, Hx Panic Disorder - 1 episode of panic while in school, Hx Post Traumatic Stress Disorder, Hx Inpatient Treatment, Hx Community Mental Health Tx, Hx Schizophrenia, Hx Bipolar Disorder, Hx Suicide Attempt, Hx of Violent Episodes Against Others, Hx Substance Abuse, Other Psychiatric Issues/Disorders - Cancer History Cancer Type, Location and Year: None reoported - Surgical History Surgery Procedure, Year, and Place: None reported Infectious Disease History: No Infectious Disease History: Denies: Traveled Outside the [place] in Last 30 Days - Family History Known Family History: Negative: Cardiac Disease, Hypertension, Diabetes - Social History Alcohol Use: None Hx Substance Use: Yes Substance Use Type: Reports: Other Substance Use Comment - Amount & Last Used: DMX cough syrup daily Hx Tobacco Use: No Smoking Status (MU): Never Smoked Tobacco Review of Systems Negative: Fever Positive: Palpitations - FAST HEART RHYTHM. Negative: Chest Pain Negative: Shortness Of Breath Negative: Abdominal Pain Psychological: Other - POSITIVE: SI Positive: Anxious, Depressed All Other Systems Reviewed And Are Negative: Yes Physical Exam - Summary Physical Exam Summary: Appearance: Well appearing, no pain distress Skin: warm, dry, reflects adequate perfusion Head/face: normal Eyes: EOMI, JODI ENT: normal Neck: supple, non-tender Respiratory: CTA, breath sounds present Cardiovascular: RRR, pulses symmetrical Abdomen: non-tender, soft Musculoskeletal: normal, strength/ROM intact Neuro: normal, sensory motor intact, A&Ox3 Psych: Depressed Triage Information Reviewed: Yes Vital Signs On Initial Exam: Initial Vitals Temp Pulse Resp BP Pulse Ox 97.6 F 121 22 148/95 96 10/07/18 00:43 10/07/18 00:43 10/07/18 00:43 10/07/18 00:43 10/07/18 00:43 Vital Signs Reviewed: Yes Diagnostics - Vital Signs Vital Signs Temp Pulse Resp BP Pulse Ox 10/07/18 01:23 107 22 94 10/07/18 01:11 109 32 158/93 93 10/07/18 00:43 97.6 F 121 22 148/95 96 - Laboratory Result Diagrams: 10/07/18 01:49 10/07/18 01:49 Lab Statement: Any lab studies that have been ordered have been reviewed, and results considered in the medical decision making process. - EKG 0139 Cardiac Rate: Tachycardia - 102 BPM EKG Rhythm: Sinus Tachycardia Summary of EKG Findings: NO ACUTE CHANGES. Course/Dx - Course Course Of Treatment: A 37 y/o male presents to the ED c/o rapid heart rate. Additionally c/o depression and anxiety. As per triage, "Patient reports feelings of impending doom and rapid heart rate". According to the patient, he has SI, depression, and anxiety because of his rapid heart rate. He stated that he feels like he is dying and has been here multiple times and still feels the same. He denies any abdominal pain, SOB, and CP. Denies any ETOH, recreational drugs, or smoking. Physical exam revealed patient is depressed. An EKG revealed sinus tachycardia at 102 BPM, no acute changes. Hematology, Chemistry, and Urinalysis were done. Labs significant for 1.30 Creatinine and 127 Glucose. In the ED course, the patient received no medications. PATIENT WAS SIGNED OUT TO DR. SPENCER VIA DR. SERRANO, PENDING MHE AND DISPOSITION, DURING SHIFT CHANGE ON AT 0700. - Diagnoses Differential Diagnosis/HQI/PQRI: Positive: Panic Disorder, Other - depression Provider Diagnoses: Depression, Anxiety, Suicidal ideation Discharge - Sign-Out/Discharge Documenting (check all that apply): Sign-Out Patient - JOSÉ Signing out patient TO: Callum Spencer Receiving patient FROM: Sunny Serrano - Discharge Plan Condition: Stable Referrals: Alyssia Humphreys NP [Primary Care Provider] - - Billing Disposition and Condition Condition: STABLE - Attestation Statements Document Initiated by Kaylaibe: Yes Documenting Scribe: Corey Montalvo Provider For Whom Wilberto is Documenting (Include Credential): Sunny Serrano MD Scribe Attestation: Corey Condon, scribed for Sunny Serraon MD on 10/07/18 at 0600. Scribe Documentation Reviewed: Yes Provider Attestation: The documentation as recorded by the Corey sorensen accurately reflects the service I personally performed and the decisions made by Sunny dean MD Status of Scribe Document: Viewed
[2018-10-07 02:02] LABS: ABS Basophils 0.1 10^3/ul (0-0.2); ABS Eosinophils 0.2 10^3/ul (0-0.6); ABS Lymphocytes 2.8 10^3/ul (1.0-4.8); ABS Monocytes 0.8 10^3/ul (0-0.8); ABS Neutrophils 5.7 10^3/ul (1.5-7.7); ABS Nucleated RBC 0 10^3/ul; Eosinophil % 1.6 %; Hematocrit 43 % (42-52); Hemoglobin 14.4 g/dl (14.0-18.0); Lymphocyte % 29.3 %; Mean Corpuscular HGB Conc 34 g/dl (31-36); Mean Corpuscular Hemoglobin 31 pg (27-31); Mean Corpuscular Volume 92 fL (80-94); Nucleated Red Blood Cells % 0; Platelet Count 283 10^3/ul (150-450); Red Blood Count 4.64 10^6/ul (4.00-5.40); Red Cell Distribution Width 14 % (10.5-15); White Blood Count 9.6 10^3/ul (3.5-10.8)
[2018-10-07 02:19] LABS: EGFR Non-African American 62.5 (>60)
[2018-10-07 02:58] LABS: Urine Appearance Clear; Urine Blood 1+ (Negative); Urine Color Yellow; Urine Ketones Negative (Negative); Urine Protein Negative (Negative); Urine Red Blood Cell Trace(0-2/hpf) (Absent); Urine Specific Gravity 1.027 (1.010-1.030); Urine Urobilinogen Negative (Negative); Urine White Blood Cell Absent (Absent)
[2018-10-07 15:10] VITALS: BP 134/92
--- NOTE | 2018-10-07 19:32 | ED ---
Progress - Progress Note Progress Note: Patient was signed out from Dr. Zendejas to Dr. Spencer pending MHE during shift change at 07:00 10/07/18. Per batch freezer, pt was cleared by mark Stringer, for discharge. Dx: anxiety related to withdrawal. - Consult/PCP Time Called: 12:25 Course/Dx - Course Course Of Treatment: Patient was signed out from Dr. Zendejas to Dr. Spencer pending MHE during shift change at 07:00 10/07/18. Per batch freezer, pt was cleared by mark Stringer, for discharge. Dx: anxiety related to withdrawal. - Diagnoses Provider Diagnoses: Anxiety - Provider Notifications Discussed Care Of Patient With: Eric Hassan Time Discussed With Above Provider: 14:20 Instructed by Provider To: Other - Per batch freezer, pt was cleared by mark Stringer, for discharge. Dx: anxiety related to withdrawal. Discharge - Sign-Out/Discharge Documenting (check all that apply): Patient Departure - DC - Discharge Plan Condition: Stable Disposition: HOME Patient Education Materials: Anxiety (ED) Referrals: Alyssia Humphreys NP [Primary Care Provider] - - Billing Disposition and Condition Condition: STABLE Disposition: Home - Attestation Statements Document Initiated by Scribe: Yes Documenting Scribe: Arcenio Ching Provider For Whom Wilberto is Documenting (Include Credential): Callum Spencer MD Scribe Attestation: Arcenio Condon scribed for Callum Spencer MD on 10/09/18 at 0257. Scribe Documentation Reviewed: Yes Provider Attestation: The documentation as recorded by the Arcenio sorensen accurately reflects the service I personally performed and the decisions made by me, Sawyer Spencer MD Status of Scribe Document: Viewed
== END | disposition home or self-care (01) ==
LOC: ED 00:42
DX: F32.9 Major depressive disorder, single episode, unspecified (principal); F41.9 Anxiety disorder, unspecified; R45.851 Suicidal ideations; R00.0 Tachycardia, unspecified
CPT/HCPCS: 36415; 80053; 80307; 80320; 80329; 81003; 81015; 84443; 84484; 85025; 93005; 99285; G0480

== ENCOUNTER 2018-12-04 00:03 | Emergency (ER) | payer OTHER ==
[2018-12-04 01:21] VITALS: BP 134/77
--- NOTE | 2018-12-04 05:12 | ED ---
Substance Abuse/Use - HPI Summary HPI Summary: Pt is 37 y/o M brought in by ambulance due to dextromethorphan overdose. He states he took 22 400 mg pills. Pt states he did it due to a feeling of doom and was trying to relax, but says he will never do this again. - History Of Current Complaint Chief Complaint: EDOverdose Stated Complaint: ANXIETY Time Seen by Provider: 12/04/18 00:19 Hx Obtained From: Patient Onset/Duration of Drug/ETOH Abuse: Hours Ingestion History: Type/Name Of Drug - dexthrometrophan, Amount Ingested - 22 400 mg pills Overdose Characteristics: Oral Character: Anxious Aggravating Factor(s): Nothing Alleviating Factor(s): Nothing - Allergies/Home Medications Allergies/Adverse Reactions: Allergies Allergy/AdvReac Type Severity Reaction Status Date / Time No Known Allergies Allergy Verified 10/03/18 05:09 PMH/Surg Hx/FS Hx/Imm Hx Endocrine/Hematology History: Reports: Hx Thyroid Disease - Hypothyroidism Denies: Hx Diabetes Cardiovascular History: Reports: Hx Hypertension Respiratory History: Denies: Hx Asthma Sensory History: Reports: Hx Contacts or Glasses Denies: Hx Deafness, Hx Hearing Aid Opthamlomology History: Reports: Hx Contacts or Glasses Psychiatric History: Reports: Hx Anxiety, Hx Depression Denies: Hx Attention Deficit Hyperactivity Disorder, Hx Eating Disorder, Hx Panic Disorder - 1 episode of panic while in school, Hx Post Traumatic Stress Disorder, Hx Inpatient Treatment, Hx Community Mental Health Tx, Hx Schizophrenia, Hx Bipolar Disorder, Hx Suicide Attempt, Hx of Violent Episodes Against Others, Hx Substance Abuse, Other Psychiatric Issues/Disorders - Cancer History Cancer Type, Location and Year: None reoported - Surgical History Surgery Procedure, Year, and Place: None reported Infectious Disease History: No Infectious Disease History: Denies: Traveled Outside the [place] in Last 30 Days - Family History Known Family History: Negative: Cardiac Disease, Hypertension, Diabetes - Social History Alcohol Use: None Hx Substance Use: Yes Substance Use Type: Reports: Other Substance Use Comment - Amount & Last Used: DMX cough syrup daily Hx Tobacco Use: No Smoking Status (MU): Never Smoked Tobacco Review of Systems Negative: Fever Positive: Anxious All Other Systems Reviewed And Are Negative: Yes Physical Exam - Summary Physical Exam Summary: Appearance: Well-appearing, Well-nourished, lying in bed comfortably Skin: Warm, dry, no obvious rash Eyes: sclera anicteric, no conjunctival pallor ENT: mucous membranes moist, pharynx appears normal Neck: Supple, nontender Respiratory: Clear to auscultation, no signs of respiratory distress Cardiovascular: Tachycardic, Normal S1, S2. No murmurs. Normal distal pulses in tibial and radial bilaterally. Abdomen: Soft, nontender, normal active bowel sounds present Musculoskeletal: Normal, Strength/ROM Intact Neurological: A&Ox3, awake and alert, mentation is normal, speech is fluent and appropriate Psychiatric: affect is normal, does not appear anxious or depressed Triage Information Reviewed: Yes Vital Signs On Initial Exam: Initial Vitals Temp Pulse Resp BP Pulse Ox 98.8 F 130 97 154/92 97 12/04/18 00:04 12/04/18 00:04 12/04/18 00:04 12/04/18 00:04 12/04/18 00:04 Vital Signs Reviewed: Yes Diagnostics - Vital Signs Vital Signs Temp Pulse Resp BP Pulse Ox 12/04/18 01:19 98.4 F 118 16 134/77 97 12/04/18 00:04 98.8 F 130 97 154/92 97 - Laboratory Lab Statement: Any lab studies that have been ordered have been reviewed, and results considered in the medical decision making process. - EKG 18:41 Cardiac Rate: Tachycardia - 129 bpm EKG Rhythm: Sinus Tachycardia Course/Dx - Course Course Of Treatment: Pt is 37 y/o M brought in by ambulance due to dextromethorphan overdose. He states he took 22 400 mg pills. Pt states he did it due to a feeling of doom and was trying to relax, but says he will never do this again. Physical exam revealed that all vital signs normal except tachycardia. EKG taken at 18:41 shows sinus tachycardia at 129 bpm. 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 - Diagnoses Provider Diagnoses: Dextromethorphan overdose Discharge - Sign-Out/Discharge Documenting (check all that apply): Patient Departure - Discharge - Discharge Plan Condition: Good Disposition: HOME Patient Education Materials: Polysubstance Abuse (ED) Referrals: Alyssia Humphreys NP [Primary Care Provider] - Additional Instructions: Do not use DXM to get high. It can be dangerous. - Billing Disposition and Condition Condition: GOOD Disposition: Home - Attestation Statements Document Initiated by Kaylaibe: Yes Documenting Scribe: Catrachita Galloway Provider For Whom Wilberto is Documenting (Include Credential): Dr. Monroe Rasheed MD Scribe Attestation: I, Catrachita Galloway, scribed for Dr. Monroe Rasheed MD on 12/04/18 at 0528. Scribe Documentation Reviewed: Yes Provider Attestation: The documentation as recorded by the scribe, Catrachita Galloway accurately reflects the service I personally performed and the decisions made by me, Dr. Monroe Rasheed MD Status of Scribe Document: Viewed
== END 2018-12-04 01:19 | disposition home or self-care (01) ==
LOC: ED 00:03
DX: T48.3X1A Poisoning by antitussives, accidental (unintentional), initial encounter (principal); F41.9 Anxiety disorder, unspecified; R00.0 Tachycardia, unspecified; Y92.9 Unspecified place or not applicable
CPT/HCPCS: 93005; 99282

== ENCOUNTER 2018-12-04 14:36 | Emergency (ER) | payer OTHER ==
[2018-12-04] MEDS ORDERED: NS 0.9% 1000 ML** 2,000 ML IV ONE (15:20)
[2018-12-04 15:37] LABS: ABS Basophils 0.1 10^3/ul (0-0.2); ABS Eosinophils 0 10^3/ul (0-0.6); ABS Lymphocytes 1.7 10^3/ul (1.0-4.8); ABS Monocytes 0.7 10^3/ul (0-0.8); ABS Neutrophils 4.8 10^3/ul (1.5-7.7); ABS Nucleated RBC 0 10^3/ul; Eosinophil % 0.5 %; Hematocrit 42 % (42-52); Hemoglobin 14.3 g/dl (14.0-18.0); Lymphocyte % 23.4 %; Mean Corpuscular HGB Conc 34 g/dl (31-36); Mean Corpuscular Hemoglobin 30 pg (27-31); Mean Corpuscular Volume 88 fL (80-94); Mean Platelet Volume 8.4 fL (7.4-10.4); Nucleated Red Blood Cells % 0.1; Platelet Count 279 10^3/ul (150-450); Red Blood Count 4.76 10^6/ul (4.00-5.40); Red Cell Distribution Width 13 % (10.5-15); White Blood Count 7.4 10^3/ul (3.5-10.8)
[2018-12-04 15:45] LABS: Activated Partial Thrombo Time 29.5 seconds (26.0-36.3)
--- NOTE | 2018-12-04 15:45 | ED ---
Palpitations / Dysrhythmia - HPI Summary HPI Summary: This patient is a 37 year old male presenting to the emergency department with a cc of a sensation of his heart pounding. Pt states he drank a large of cough syrup last night at 1999 in an attempt to get high or whatever. He started having rapid palpitations and came to the ED last night, he was discharged at 0100 and sat in the waiting room till 0600 waiting for a ride. He has had mild palpitations the whole time but the got worse this morning around 0600. He does have a history of anxiety and hyperthyroid. - History of Current Complaint Chief Complaint: EDDysrhythmPalp Time Seen by Provider: 12/04/18 15:02 Hx Obtained From: Patient Onset/Duration: Lasting Hours, Still Present Timing: Constant Severity Initially: Mild Severity Currently: Mild Character: Fast, Pounding Associated Signs & Symptoms: Negative - fever - Allergy/Home Medications Allergies/Adverse Reactions: Allergies Allergy/AdvReac Type Severity Reaction Status Date / Time No Known Allergies Allergy Verified 10/03/18 05:09 PMH/Surg Hx/FS Hx/Imm Hx Endocrine/Hematology History: Reports: Hx Thyroid Disease - Hypothyroidism Denies: Hx Diabetes Cardiovascular History: Reports: Hx Hypertension Denies: Hx Cardiac Arrest, Hx Coronary Artery Disease Respiratory History: Denies: Hx Asthma, Hx Cystic Fibrosis Sensory History: Reports: Hx Contacts or Glasses Denies: Hx Deafness, Hx Hearing Aid Opthamlomology History: Reports: Hx Contacts or Glasses Psychiatric History: Reports: Hx Anxiety, Hx Depression Denies: Hx Attention Deficit Hyperactivity Disorder, Hx Eating Disorder, Hx Panic Disorder - 1 episode of panic while in school, Hx Post Traumatic Stress Disorder, Hx Inpatient Treatment, Hx Community Mental Health Tx, Hx Schizophrenia, Hx Bipolar Disorder, Hx Suicide Attempt, Hx of Violent Episodes Against Others, Hx Substance Abuse, Other Psychiatric Issues/Disorders - Cancer History Cancer Type, Location and Year: None reoported - Surgical History Surgery Procedure, Year, and Place: None reported Infectious Disease History: No Infectious Disease History: Denies: Traveled Outside the [place] in Last 30 Days - Family History Known Family History: Negative: Cardiac Disease, Hypertension, Diabetes - Social History Alcohol Use: None Hx Substance Use: Yes Substance Use Type: Reports: Other Substance Use Comment - Amount & Last Used: DMX cough syrup daily Hx Tobacco Use: No Smoking Status (MU): Never Smoked Tobacco Review of Systems Negative: Fever Positive: Palpitations All Other Systems Reviewed And Are Negative: Yes Physical Exam - Summary Physical Exam Summary: Appearance: Well appearing, no pain distress Skin: warm, dry, reflects adequate perfusion Head/face: normal Eyes: EOMI, JODI ENT: normal Neck: supple, non-tender Respiratory: CTA, breath sounds present Cardiovascular: rapid rate, pulses symmetrical Abdomen: non-tender, soft Musculoskeletal: normal, strength/ROM intact Neuro: normal, sensory motor intact, A&Ox3 Triage Information Reviewed: Yes Vital Signs On Initial Exam: Initial Vitals Temp Pulse Resp BP Pulse Ox 96.5 F 115 22 153/107 98 12/04/18 14:39 12/04/18 14:39 12/04/18 14:39 12/04/18 14:39 12/04/18 14:39 Vital Signs Reviewed: Yes Diagnostics - Vital Signs Vital Signs Temp Pulse Resp BP Pulse Ox 12/04/18 14:39 96.5 F 115 22 153/107 98 - Laboratory Lab Results: Lab Results 12/04/18 Range/Units 15:29 WBC 7.4 (3.5-10.8) 10^3/ul RBC 4.76 (4.00-5.40) 10^6/ul Hgb 14.3 (14.0-18.0) g/dl Hct 42 (42-52) % MCV 88 (80-94) fL MCH 30 (27-31) pg MCHC 34 (31-36) g/dl RDW 13 (10.5-15) % Plt Count 279 (150-450) 10^3/ul MPV 8.4 (7.4-10.4) fL Neut % (Auto) 65.6 % Lymph % (Auto) 23.4 % Butts % (Auto) 9.8 % Eos % (Auto) 0.5 % Baso % (Auto) 0.7 % Absolute Neuts (auto) 4.8 (1.5-7.7) 10^3/ul Absolute Lymphs (auto) 1.7 (1.0-4.8) 10^3/ul Absolute Monos (auto) 0.7 (0-0.8) 10^3/ul Absolute Eos (auto) 0 (0-0.6) 10^3/ul Absolute Basos (auto) 0.1 (0-0.2) 10^3/ul Absolute Nucleated RBC 0 10^3/ul Nucleated RBC % 0.1 Result Diagrams: 12/04/18 15:29 12/04/18 15:29 Lab Statement: Any lab studies that have been ordered have been reviewed, and results considered in the medical decision making process. - Radiology cxr Radiology Interpretation Completed By: Radiologist Summary of Radiographic Findings: no active cardiopulmonary disease is noted. ED physician has reviewed this report. - EKG 1442 Cardiac Rate: Tachycardia EKG Rhythm: Sinus Tachycardia - at 105 BPM Summary of EKG Findings: no acute changes Course/Dx - Course Assessment/Plan: This patient is a 37 year old male presenting to the emergency department with a cc of a sensation of his heart pounding. Pt states he drank a large of cough syrup last night at 2000 in an attempt to get high or whatever. He started having rapid palpitations and came to the ED last night, he was discharged at 0100 and sat in the waiting room till 0600 waiting for a ride. He has had mild palpitations the whole time but the got worse this morning around 0600. He does have a history of anxiety and hyperthyroid. CXR reveals per radiology, no active cardiopulmonary disease is noted. The bloodwork was negative. The patient will be discharged and f/u with PCP dx anxiety and palpitations - Diagnoses Differential Diagnosis/HQI/PQRI: Positive: Other - palpitations/anxeity reaction Provider Diagnoses: Palpitations, Anxiety Discharge - Sign-Out/Discharge Documenting (check all that apply): Patient Departure - Discharge Plan Condition: Stable Disposition: HOME Patient Education Materials: Heart Palpitations (ED), Anxiety (ED) Referrals: Alyssia Humphreys NP [Primary Care Provider] - Additional Instructions: Follow up with your primary care physician in 1-3 days. RETURN TO THE EMERGENCY DEPARTMENT FOR CHANGING OR WORSENING SYMPTOMS. - Billing Disposition and Condition Condition: STABLE Disposition: Home - Attestation Statements Document Initiated by Scribe: Yes Documenting Scribe: Leo Ryder Provider For Whom Scribe is Documenting (Include Credential): Sunny Zendejas MD Scribe Attestation: Leo Condon , scribed for Sunny Zendejas MD on 12/04/18 at 2123. Scribe Documentation Reviewed: Yes Provider Attestation: The documentation as recorded by the Leo sorensen accurately reflects the service I personally performed and the decisions made by me, Sunny Zendejas MD Status of Wilberto Document: Viewed
[2018-12-04 16:04] LABS: ALT 92 U/L (7-52); AST 49 U/L (13-39); Albumin 4.7 g/dL (3.2-5.2); Albumin/Globulin Ratio 1.8 (1-3); Alkaline Phosphatase 84 U/L (34-104); Anion Gap 5 mmol/L (2-11); BUN/Creatinine Ratio 11.9 (8-20); Blood Urea Nitrogen 13 mg/dL (6-24); CO2 Carbon Dioxide 26 mmol/L (22-32); Calcium 9.7 mg/dL (8.6-10.3); Chloride 107 mmol/L (101-111); EGFR African American 92.6 (>60); EGFR Non-African American 76.5 (>60); Globulin 2.6 g/dL (2-4); Glucose 120 mg/dL (70-100); Potassium 4.3 mmol/L (3.5-5.0); Sodium 138 mmol/L (135-145); Total Protein 7.3 g/dL (6.4-8.9)
[2018-12-04 16:12] LABS: Acetaminophen < 15 mcg/mL
[2018-12-04 16:16] LABS: Salicylate < 2.50 mg/dL (<30)
[2018-12-04 16:27] LABS: TSH (Thyroid Stimulating Horm) 0.01 mcIU/mL (0.34-5.60)
[2018-12-04 17:50] VITALS: BP 137/80
== END 2018-12-04 17:50 | disposition home or self-care (01) ==
LOC: ED 14:36
DX: R00.2 Palpitations (principal); F41.9 Anxiety disorder, unspecified
CPT/HCPCS: 36415; 71045; 80053; 80329; 83605; 84443; 84484; 85025; 85379; 85610; 85730; 93005; 99283; G0480